=== PATIENT | female | born 1950 | race Caucasian/White ===

== ENCOUNTER 2017-06-16 14:52 | Emergency (ER) | payer OTHER ==
[2017-06-16] MEDS ORDERED: IBUPROFEN 600 MG TAB PO ONE (15:24)
--- NOTE | 2017-06-16 15:41 | EDPHY ---
H & P Time Seen by Provider: 06/16/17 15:15 HPI/ROS: This patient reports left knee pain intermittently over the past 6 months worse over the past week currently 6/10 in intensity. She has also had episodes of the knee "giving out "over the past week. This occurred once while going downstairs and twice while standing. She describes the pain as primarily the region of the lateral patella and achy in nature. She notes no other associated symptoms. She has had a long history of a "bump to the anterior patella that varies a bit in size but denies any pain at the site of the bump. She is currently visiting her daughter driving here from [place] with her recently and is her daughter's noticing that the patient's knee pain that prompted her visit by private vehicle today for further evaluation. ROS: No fevers or chills. No other constitutional symptoms Cardiovascular: No significant edema to the lower extremity or discoloration to the leg Musculoskeletal: No other arthralgias or musculoskeletal complaints. No significant swelling to the affected knee. Neuro: No numbness or tingling the affected area. Integumentary: No skin rash 5 point ROS is otherwise negative. Past Medical/Surgical History: Anxiety Migraines Insomnia Hypertension She denies any prior significant left knee injuries. Physical Exam: Physical Exam Vital signs are normal. General: No acute distress Eyes: Pupils equal and react to light. Extraocular motions are intact. Lungs: No respiratory distress. Cardiac: Brisk capillary refill is intact throughout. Pulses are 2+ and symmetric in the affected extremity. Skin: No rash or pallor. Extremities: Atraumatic normal except for left knee Left knee: Patient has a 2 cm protuberances to the anterior patella is nontender with no erythema or warmth to touch. There is mild lateral knee tenderness around the margin of the lateral patella but no patellar anxiety with lateral displacement of the patella. The medial posterior or lateral knee swelling or tenderness. She maintains full range of motion. With ligamentous stress testing there is no laxity in varus or valgus stressors no increase in pain and Francisco's is negative for laxity. Neuro: Alert and oriented x3 with no sensorimotor deficits. Initial differential diagnosis: Patellofemoral syndrome, osteoarthritis, meniscal injury bony lesion Constitutional: Initial Vital Signs Temperature (C) 37.1 C 06/16/17 15:05 Heart Rate 77 06/16/17 15:05 Respiratory Rate 18 06/16/17 15:05 Blood Pressure 140/83 H 06/16/17 15:05 O2 Sat (%) 95 06/16/17 15:05 O2 Delivery Mode Room Air Allergies/Adverse Reactions: amoxicillin Allergy (Intermediate, Verified 06/16/17 15:11) Rash Home Medications: Medication Instructions Recorded Eszopiclone [Lunesta] 06/16/17 Hydrocodone/APAP 5/325 [[place] 1 - 2 tab PO Q4PRN PRN #15 tab 06/16/17 5/325 (*)] Hyzaar 100-12.5 Tablet 06/16/17 Lexapro 06/16/17 Lidocaine 5% [Lidoderm 5% Patch 1 ea TD DAILY #15 patch 06/16/17 (*)] Lorazepam 06/16/17 Sumatriptan 06/16/17 MDM/Departure - MDM Diagnostics: Three-view knee film: Normal by my interpretation Imaging: I viewed and interpreted images myself Medications Given: Discontinued Medications Ibuprofen (Motrin) 600 mg PO EDNOW ONE Stop: 06/16/17 15:25 Last Admin: 06/16/17 15:40 Dose: 600 mg ED Course/Re-evaluation: Discussion: Findings I think are most consistent with patellofemoral syndrome. I counseled patient regarding this. Other possibility would be meniscal injury the appreciate no crepitance on exam. Also, she has not had any knee locking no evidence of ligamentous laxity, bony abnormalities or other concerning findings After ibuprofen she is placed in neoprene brace and I counseled her regarding patellofemoral syndrome. She relates that she is planning to return with her to [place] in 3 days and will plan to follow up with orthopedic physician there for any ongoing symptoms. - Depart Disposition: Home, Routine, Self-Care Clinical Impression: Patellofemoral syndrome of left knee Condition: Good Instructions: Patellofemoral Pain Syndrome (ED) Additional Instructions: Diagnosis: Patellofemoral syndrome Plan: Start stretches and strengthening exercises to try to correct this syndrome. Where the neoprene brace for comfort while up and about Ibuprofen and Tylenol for pain. Lidoderm patch at night in addition if needed. Vicodin in addition if needed for pain. No driving, alcohol work on Vicodin. Follow up with orthopedic physician upon return back to [place] for further evaluation for any ongoing symptoms. A meniscal (cartilage injury) is another possibility for the pain in your knee. Return emergency department for any significant worsening despite the treatment plan Prescriptions: Hydrocodone/APAP 5/325 [[place] 5/325 (*)] 1 - 2 tab PO Q4PRN PRN #15 tab PRN Reason: knee pain Lidocaine 5% [Lidoderm 5% Patch (*)] 1 ea TD DAILY #15 patch Referrals: Doctor Not,On Staff, [Primary Care Provider] - As per Instructions Suraj Frye MD [Medical Doctor] - As per Instructions
[2017-06-16 16:11] VITALS: BP 135/86; PULSE 71; RESP 16; TEMP 98.4; O2SAT 94
== END 2017-06-16 16:10 | disposition home or self-care (01) ==
LOC: CED 14:52
DX: M22.2X2 Patellofemoral disorders, left knee (principal); I10 Essential (primary) hypertension
CPT/HCPCS: 73562; 99284; L1830